=== PATIENT | male | born 1960 | race Caucasian/White ===

== ENCOUNTER 2016-09-04 00:23 | Emergency (ER) | payer OTHER ==
[~2016-09-04] VITALS: Ht 190.5 cm; Wt 93.0 kg
[~2016-09-04 00:23] MED LIST: ATORVASTATIN CA10 MG PO; COLACE100 MG PO; COUMADIN 5 MG TA5 MG PO; COUMADIN 7.5 M7.5 MG PO; NORCO 325 MG-51 TAB PO; PERCOCET 325 MG1 TA2 PO
[2016-09-04 00:51] LABS: ABSOLUTE BASOPHIL COUNT 0.1 /CUMM (0.0-0.2); ABSOLUTE EOSINOPHIL COUNT 0.3 /CUMM (0.0-0.7); ABSOLUTE GRANULOCYTE CT 6.2 /CUMM (1.4-6.5); ABSOLUTE LYMPH COUNT 2.2 /CUMM (1.2-3.4); ABSOLUTE MONOCYTE COUNT 0.5 /CUMM (0.10-0.60); BASOPHIL % 0.7 % (0.0-2.0); EOSINOPHIL % 3.5 % (0-5); GRANULOCYTE % 66.2 % (42.2-75.2); HEMATOCRIT 39.6 % (42-52); MEAN CORPUSCULAR HGB 30.2 PG (27.0-31.0); MEAN CORPUSCULAR HGB CONC 34.9 G/DL (33.0-37.0); MEAN CORPUSCULAR VOLUME 86.7 FL (80.0-94.0); MEAN PLATELET VOLUME 7.7 FL (7.4-10.4); PLATELET COUNT 226 /CUMM (130-400); RBC DISTRIBUTION WIDTH 12.7 % (11.5-14.5); RED BLOOD CELL CT 4.57 /CUMM (4.70-6.10); WHITE BLOOD CELL COUNT 9.4 /CUMM (4.8-10.8)
--- NOTE | 2016-09-04 00:58 | ED CARDIAC/CP/PALPITATIONS ---
History of Present Illness General Chief Complaint: Dyspnea (COPD, CHF, Other) Stated Complaint: DIFF BREATHING,CHEST PAIN Source: patient, old records Exam Limitations: no limitations Vital Signs & Intake/Output Vital Signs & Intake/Output Vital Signs Date Time Temp Pulse Resp B/P Pulse O2 O2 Flow FiO2 Ox Delivery Rate 09/04 210 98.9 85 18 128/75 96 Room Air 09/04 004 96 Room Air 09/04 40 97.9 83 18 138/88 96 Room Air Allergies Coded Allergies: NO KNOWN ALLERGIES (03/03/15) Reconcile Medications Albuterol Sulfate 2.5 MG/3 ML (0.083 %) VIAL.NEB 1 Vial INH/NAVEEN Q4P PRN shortness of breath Amoxicillin 875 MG TABLET 1 TAB PO BID pneumona Atorvastatin Calcium (Lipitor) 10 MG TAB 1 TAB PO DAILY CHOLESTEROL (Reported ) Docusate Sodium (Colace) 100 MG SGL 1 CAP PO BID constipation Ibuprofen 800 MG TABLET 1 TAB PO Q6PRN PRN pain OXYCODONE HCL/ACETAMINOPHEN (Percocet 5-325 MG Tablet) 325 MG/5 MG TAB 1-2 TAB PO Q4P PRN PAIN Tramadol HCl (Ultram) 50 MG TABLET 1-2 TAB PO Q6PRN PRN severe pain Warfarin Sodium (Coumadin) 7.5 MG TAB 1 TAB PO DAILY BLOOD THINNER DOSE FOR INR 2-3 Triage Note: PT TO ED C/O PAIN UNDER LEFT RIBS FOR 2 HRS. PAIN WORSE WITH INSPIRATION AND MOVEMENT. PAIN "ALL OVER" LLQ, LEFT CHEST, UNDER LEFT RIBS AND TO BACK" NO KNOWN INJURY. SOME NAUSEA. DENIES DIZZINESS. STATES FEELS SOB "BECAUSE I CAN'T BREATHE ALL THE WAY IN" Triage Nurses Notes Reviewed? yes Onset: Just prior to arrival Duration: hour(s):, constant, continues in ED, getting worse Timing: recent history Quality/Severity: severe, sharp Location: substernal Radiation: epigastric Activities at Onset: none Prior Chest Pain/Card Workup: no prior chest pain Modifying Factors: Worsens With: coughing, movement. Nitro Today/Relief: no nitro taken today Aspirin Today: no aspirin today Associated Symptoms: shortness of breath HPI: 2 hours prior to admission patient complains of sharp severe left-sided chest pain radiating to epigastrium left lower quadrant worse with coughing taking a deep breath. He denies fever chills nausea vomiting diarrhea dysuria rash bleeding headache shortness of breath. Past History Travel History Traveled to [place] past 21 day No Medical History Any Pertinent Medical History? see below for history Neurological: NONE EENT: NONE Cardiovascular: hyperlipidemia Respiratory: NONE Gastrointestinal: NONE Hepatic: NONE Renal: NONE Musculoskeletal: LTK Psychiatric: NONE Endocrine: NONE Blood Disorders: NONE Cancer(s): NONE GENERAL OFFICE DISPATCHER/Reproductive: NONE History of MRSA: No History of VRE: No History of CDIFF: No Surgical History Surgical History: knee replacement Psychosocial History Who do you live with Brother Services at Home None What is your primary language Bolivian Tobacco Use: Quit >30 days ago ETOH Use: occasional use Illicit Drug Use: denies illicit drug use Family History Hx Contributory? No Review of Systems Review of Systems Constitutional: Reports: no symptoms. EENTM: Reports: no symptoms. Respiratory: Reports: see HPI, short of breath. Cardiovascular: Reports: see HPI, chest pain. GI: Reports: no symptoms. Genitourinary: Reports: no symptoms. Musculoskeletal: Reports: no symptoms. Skin: Reports: no symptoms. Neurological/Psychological: Reports: no symptoms. Hematologic/Endocrine: Reports: no symptoms. Immunologic/Allergic: Reports: no symptoms. All Other Systems: Reviewed and Negative Physical Exam Physical Exam General Appearance: well developed/nourished, alert, awake, anxious, moderate distress, thin Head: atraumatic, normal appearance Eyes: Bilateral: normal appearance, PERRL, EOMI. Ears, Nose, Throat: normal pharynx, normal ENT inspection, hearing grossly normal Neck: normal inspection, supple, full range of motion, no midline tenderness Respiratory: no respiratory distress, quiet respiration, lungs clear, decreased breath sounds Cardiovascular: regular rate/rhythm, normal peripheral pulses, norml femoral pulses equa Peripheral Pulses: 4+ carotid (R), 4+ carotid (L) Gastrointestinal: normal bowel sounds, soft, non-tender, no organomegaly Back: normal inspection, normal range of motion Extremities: normal inspection, normal capillary refill, normal range of motion, no edema Neurologic/Psych: no motor/sensory deficits, awake, alert, oriented x 3, normal gait, normal mood/affect, 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 Skin: intact, normal color, warm/dry Lymphatic: no anterior cervical bárbara Core Measures ACS in differential dx? No Severe Sepsis Present: No Septic Shock Present: No Progress Differential Diagnosis: AMI, cholecystitis, costochondritis, pancreatitis, pneumonia Plan of Care: Orders Procedure Date/time Status TROPONIN LEVEL 09/04 36 Complete COMPREHENSIVE METABOLIC PANEL 09/04 36 Complete CBC WITHOUT DIFFERENTIAL 09/04 36 Complete EKG 09/04 24 Active Current Medications Sig/Belem Start time Last Medication Dose Stop Time Status Admin Ibuprofen 800 MG ONCE ONE 09/04 414 UNVr (Motrin) 09/05 415 Tramadol HCl 50 MG ONCE ONE 09/04 414 UNVr (Ultram) 09/05 415 Laboratory Tests 09/04/16 0040: Anion Gap 8, Estimated GFR > 60, BUN/Creatinine Ratio 24.4, Glucose 127 H, Calcium 9.3, Total Bilirubin 0.6, AST 26, ALT 47, Alkaline Phosphatase 75, Troponin I < 0.01, Total Protein 7.1, Albumin 4.0, Globulin 3.1, Albumin/ Globulin Ratio 1.3, CBC w Diff NO MAN DIFF REQ, RBC 4.57 L, MCV 86.7, MCH 30.2, RDW 12.7, MPV 7.7, Gran % 66.2, Lymphocytes % 23.9, Monocytes % 5.7, Eosinophils % 3.5, Basophils % 0.7, Absolute Granulocytes 6.2, Absolute Lymphocytes 2.2, Absolute Monocytes 0.5, Absolute Eosinophils 0.3, Absolute Basophils 0.1, PUBS MCHC 34.9 Diagnostic Imaging: Viewed by Me: CT Scan. Discussed w/RAD: CT Scan. Radiology Impression: There is no acute pulmonary embolism. Focal consolidative disease within the right upper lobe is suspected to represent a manifestation of pneumonia. The possibility of a neoplasm cannot be definitively excluded on the basis of this examination therefore a follow-up chest radiograph is recommended after a complete course of medical therapy to ensure resolution. There are small bilateral pleural effusions and bibasilar subsegmental atelectasis. CXR Impression: Multifocal airspace disease involving both lungs. Findings are suspected to represent a manifestation of pneumonia. Initial ED EKG: normal axis, normal intervals, normal p-waves, normal QRS complex, normal sinus rhythm, no ST T wave changes Rhythm Strip: normal sinus rhythm Departure Departure Time of Disposition: 356 Disposition: HOME OR SELF CARE Condition: Stable Clinical Impression Primary Impression: Pneumonia Qualifiers: Pneumonia type: due to unspecified organism Secondary Impressions: Chest pain in adult Referrals: RAGHU HURD,GOLDIE Cagle (PCP/Family) Departure Forms: Customer Survey General Discharge Information Prescriptions: Current Visit Scripts Amoxicillin 1 TAB PO BID #20 TAB Ibuprofen 1 TAB PO Q6PRN PRN pain #50 TAB Tramadol HCl (Ultram) 1-2 TAB PO Q6PRN PRN severe pain #30 TAB Albuterol Sulfate 1 Vial INH/NAVEEN Q4P PRN shortness of breath #50 Vial Ref 5 Critical Care Note Critical Care Note Critical Care Time: non-applicable
--- NOTE | 2016-09-04 01:20 | RADIOLOGY REPORT ---
EXAMINATION: XR PORTABLE CHEST CLINICAL INFORMATION: Chest pain. Shortness of breath. Evaluate for CHF. COMPARISON: No relevant prior imaging available. TECHNIQUE: Portable AP view of the chest was obtained. FINDINGS: There are multifocal ill-defined airspace opacities involving both lungs. No pleural effusion or pneumothorax. The cardiac silhouette and upper mediastinal contours are normal. No acute osseous finding. IMPRESSION: Multifocal airspace disease involving both lungs. Findings are suspected to represent a manifestation of pneumonia.
[2016-09-04 02:11] VITALS: BP 128/75
--- NOTE | 2016-09-04 02:48 | CT SCAN REPORT ---
EXAMINATION: CT ANGIOGRAM OF THE CHEST WITH AND WITHOUT CONTRAST (CT PULMONARY ANGIOGRAM FOR PE) CLINICAL INFORMATION: Pleuritic chest pain. Evaluate for acute pulmonary embolism. COMPARISON: Chest radiograph same day. TECHNIQUE: Prior to contrast administration, noncontrast localization images were obtained. Subsequently, multidetector volumetric imaging was performed from the thoracic inlet to below the diaphragms following the administration of 93 mL Optiray 320 intravenous contrast. No contrast reaction reported. Sagittal, coronal, and MIP oblique sagittal reformatted images were obtained on the CT workstation, uploaded to PACS, and reviewed. Total exam dose-length product 524.96 mGy-cm. FINDINGS: The timing of the contrast bolus injection provides adequate opacification of the pulmonary arterial vasculature. There is no central luminal filling defect to suggest the presence of an acute pulmonary embolism. There is focal consolidative disease within the right upper lobe adjacent to the major and minor fissures. Subsegmental atelectasis involves the basal segments of both lower lobes. There are small bilateral pleural effusions, greater on the left. The heart is normal. There is no pericardial effusion. The aortic arch apex and the origins of the major aortic branches are widely patent. Visualized portions of the thoracic outlet including the thyroid gland are unremarkable. There is no mediastinal or axillary adenopathy. Limited visualization of the upper abdomen reveals no abnormal finding. There is no acute osseous finding. Specifically no worrisome lytic or blastic osseous lesion. IMPRESSION: There is no acute pulmonary embolism. Focal consolidative disease within the right upper lobe is suspected to represent a manifestation of pneumonia. The possibility of a neoplasm cannot be definitively excluded on the basis of this examination therefore a follow-up chest radiograph is recommended after a complete course of medical therapy to ensure resolution. There are small bilateral pleural effusions and bibasilar subsegmental atelectasis.
[2016-09-04] MEDS ORDERED: ULTRAM50 M1 PO (03:59)
[2016-09-04] MEDS ORDERED: ALBUTEROL2.5 MG/3 M INH/SOL (03:59)
[2016-09-04] MEDS ORDERED: IBUPROFEN800 M1 PO (03:59)
[2016-09-04] MEDS ORDERED: AMOXICILLIN875 M1 PO (03:59)
[2016-09-04] MEDS ORDERED: PROAIR HFA8.5 GM INH (04:09)
== END 2016-09-04 04:38 ==
LOC: ERH 00:23
PROVIDERS: Emergency Medicine
DX: J18.9 Pneumonia, unspecified organism (principal); R07.9 Chest pain, unspecified; Z87.891 Personal history of nicotine dependence
CPT/HCPCS: 93005; 93010; 96365; 96375; J1885